=== PATIENT | female | born 1950 | race African-American/Black ===

== ENCOUNTER → 2017-02-03 | Outpatient (CLI) | payer MEDICARE, OTHER ==
[~2017-02-03] MED LIST: ALBU17IN2; BUSP10TA; HYDR25TAB; LATA5OPD; LISI-538; MECL12.575; MELO15TA4; METO50TA7; NAPR500T PO; PROM25TA; TRAM50TA2; VENTAER
[2017-02-03 12:37] LABS: MEAN CORPUSCULAR HEMOGLOBIN 31.1 pg (27.0-33.0); MEAN CORPUSCULAR HGB CONC 34.1 g/dl (32.0-36.5); MEAN CORPUSCULAR VOLUME 91.3 fl (80.0-96.0); PLATELET COUNT, AUTOMATED 164 10^3/uL (150-450); RED CELL DISTRIBUTION WIDTH 13.6 % (11.5-14.5); WHITE BLOOD COUNT 6.4 10^3/uL (4.0-10.0)
--- NOTE | 2017-02-03 12:39 | REP ---
Clinical: Hypertension . Comparison: None . Technique: PA and lateral. Findings: The mediastinum and cardiac silhouette are normal. The lung bajwa are clear and without acute consolidation, effusion, or pneumothorax. The skeletal structures are intact and normal. Impression: 1. No acute cardiopulmonary process. Signed by Elliot Norwood MD 02/03/2017 12:30 P
[2017-02-03 13:15] LABS: ALBUMIN 3.5 GM/DL (3.2-5.2); ALBUMIN/GLOBULIN RATIO 0.83 (1.00-1.93); ALKALINE PHOSPHATASE 58 U/L (45-117); ALT/SGPT 34 U/L (12-78); ANION GAP 7 MEQ/L (8-16); AST/SGOT 32 U/L (7-37); BILIRUBIN,TOTAL 0.7 MG/DL (0.2-1.0); BLOOD UREA NITROGEN 17 MG/DL (7-18); CARBON DIOXIDE LEVEL 31 MEQ/L (21-32); CHLORIDE LEVEL 104 MEQ/L (98-107); CHOLESTEROL LEVEL 224 MG/DL (<200); CREATININE FOR GFR 0.75 MG/DL (0.55-1.02); GLOMERULAR FILTRATION RATE > 60.0 (>45); GLUCOSE, FASTING 87 MG/DL (80-110); POTASSIUM SERUM 4.3 MEQ/L (3.5-5.1); SODIUM LEVEL 142 MEQ/L (136-145); TOTAL PROTEIN 7.7 GM/DL (6.4-8.2); TRIGLYCERIDES LEVEL 93 MG/DL (<150)
--- NOTE | 2017-02-03 13:23 | ECGEPIP ---
Stationary ECG Study [facility] Test Date: 2017-02-03 Pat Name: KARL SPENCE Department: Room: - Gender: F Marketing Research Coordinator: TATYANA : 1950 Requested By: Gabo Rockwell Order Number: [id number] Reading MD: Ronit Hernandez Measurements Intervals [place] Rate: 70 P: 76 MO: 188 QRS: 28 QRSD: 101 T: 67 QT: 399 QTc: 432 Interpretive Statements SINUS RHYTHM WITH OCCASIONAL VENTRICULAR PREMATURE COMPLEXES POSSIBLE LEFT ATRIAL ENLARGEMENT NO PRIOR Electronically Signed On 02-03-2017 13:23:24 EST by Ronit Hernandez
== END ==
LOC: M LAB 11:28
PROVIDERS: ATTEND Family Medicine
DX: I10 Essential (primary) hypertension (principal); Z79.899 Other long term (current) drug therapy; R53.83 Other fatigue

== ENCOUNTER 2017-02-05 18:12 | Emergency (ER) | payer MEDICARE, OTHER ==
[~2017-02-05] VITALS: Ht 175.3 cm; Wt 120.0 kg
[2017-02-05] MEDS ORDERED: METO50TA7 (18:33)
[2017-02-05] MEDS ORDERED: VENTAER (18:33)
[2017-02-05] MEDS ORDERED: BUSP10TA (18:33)
[2017-02-05] MEDS ORDERED: TRAM50TA2 (18:33)
[2017-02-05] MEDS ORDERED: MELO15TA4 (18:33)
[2017-02-05] MEDS ORDERED: HYDR25TAB (18:33)
[2017-02-05] MEDS ORDERED: PROM25TA (18:33)
[2017-02-05] MEDS ORDERED: ALBU17IN2 (18:33)
[2017-02-05] MEDS ORDERED: LATA5OPD (18:33)
[2017-02-05] MEDS ORDERED: MECL12.575 (18:33)
[2017-02-05] MEDS ORDERED: LISI-538 (18:33)
[2017-02-05] MEDS ORDERED: NS 1,000 ML IV SCH (18:55)
[2017-02-05 19:22] LABS: BASO % 0.3 % (0.0-1.0); EOS # 0.3 10^3/uL (0.0-0.50); EOS % 4.2 % (0.0-3.0); IMMATURE GRANULOCYTE % 0.2 % (0-0); LYMPH # 2.1 10^3/uL (1.5-4.5); MEAN CORPUSCULAR HGB CONC 33.4 g/dl (32.0-36.5); MEAN CORPUSCULAR VOLUME 92.8 fl (80.0-96.0); MONO # 0.8 10^3/uL (0.0-0.8); MONO % 11.8 % (0.0-5.0); NEUTROPHILS # 3.3 10^3/uL (1.8-7.7); NEUTROPHILS % 50.5 % (36.0-66.0); PLATELET COUNT, AUTOMATED 169 10^3/uL (150-450); RED CELL DISTRIBUTION WIDTH 13.5 % (11.5-14.5); WHITE BLOOD COUNT 6.4 10^3/uL (4.0-10.0)
--- NOTE | 2017-02-05 19:30 | REPUSA ---
CLINICAL HISTORY: Altered mental status COMPARISON: No study for comparison is available at the time of interpretation. TECHNIQUE: Head CT without contrast. Total DLP 894.8 mGy*cm Brain: Mild generalized parenchymal atrophy. No intracranial hemorrhage, hydrocephalus, acute parench ymal edema or evident mass. Calvarium: Left forehead swelling without fracture. Sinuses (partially visualized): Clear. Intracranial vessels: Atherosclerotic calcification of the anterior and posterior circulation. IMPRESSION: 1. Chronic parenchymal atrophy and atherosclerotic calcification without acute intracranial findings . 2. Mild left forehead swelling without fracture.
[2017-02-05 19:39] LABS: ALBUMIN 3.6 GM/DL (3.2-5.2); ALBUMIN/GLOBULIN RATIO 0.88 (1.00-1.93); ALKALINE PHOSPHATASE 69 U/L (45-117); ALT/SGPT 39 U/L (12-78); ANION GAP 7 MEQ/L (8-16); AST/SGOT 37 U/L (7-37); BILIRUBIN,DIRECT 0.2 MG/DL (0.0-0.2); BILIRUBIN,TOTAL 0.3 MG/DL (0.2-1.0); BLOOD UREA NITROGEN 20 MG/DL (7-18); CALCIUM LEVEL 8.4 MG/DL (8.8-10.2); CARBON DIOXIDE LEVEL 26 MEQ/L (21-32); CHLORIDE LEVEL 110 MEQ/L (98-107); CREATININE FOR GFR 0.79 MG/DL (0.55-1.02); GLOMERULAR FILTRATION RATE > 60.0 (>45); GLUCOSE, FASTING 91 MG/DL (80-110); POTASSIUM SERUM 3.7 MEQ/L (3.5-5.1); SODIUM LEVEL 143 MEQ/L (136-145); TOTAL PROTEIN 7.7 GM/DL (6.4-8.2)
[2017-02-05] MEDS ORDERED: MORPHINE 2 MG/ML 1ML SYRINGE IV ONE (19:45)
--- NOTE | 2017-02-05 20:10 | REPUSA ---
HISTORY: Fall. COMPARISON: No relevant comparison is available at the time of interpretation. CT C-SPINE with reformations. Total DLP 462.4 mGy*cm. C1 through T1: Incomplete posterior ring of C1, which is a developmental variant. No acute fracture. Dens intact. Central canal: Patent without neural encroachment. Alignment (by reformations): Chronic grade 1 anterolisthesis of C3 over C4 due to facet arthrosis. C2-3: Right facet arthrosis produces moderate right neural foraminal stenosis. C3-4: Right facet arthrosis and uncovertebral osteophytes produce severe right neural foraminal steno sis. C4-5: Left facet arthrosis produces mild left neural foraminal stenosis. C5-6: Left facet arthrosis and uncovertebral osteophytes produces moderate left neural foraminal sten osis. IMPRESSION: Degenerative spondylosis produces neural foraminal encroachment from C2-3 through C5-6, w ithout acute fracture.
[2017-02-05] MEDS ORDERED: NAPR500T PO (20:30)
[2017-02-05 21:02] VITALS: BP 142/74
--- NOTE | 2017-02-06 08:40 | REP ---
BILATERAL RIBS, PA CHEST, FIVE VIEWS: HISTORY: Fall. The lungs are clear. The heart is normal in size. The pulmonary vasculature is normal in appearance. The bony structure is intact. IMPRESSION: No acute disease. Signed by Eliseo Graham MD 02/06/2017 09:20 A
--- NOTE | 2017-02-06 17:57 | ECGEPIP ---
Stationary ECG Study [facility] Test Date: 2017-02-05 Pat Name: KARL SPENCE Department: Room: - Gender: F Electrical Inspector: : 1950 Requested By: SEMAJ MENDES Order Number: [id number] Reading MD: Jimbo Castaneda Measurements Intervals [place] Rate: 79 P: 70 NM: 184 QRS: 6 QRSD: 86 T: 65 QT: 390 QTc: 448 Interpretive Statements SINUS RHYTHM SIMILAR TO 02/03/17 Electronically Signed On 02-06-2017 17:56:59 EST by Jimbo Castaneda
== END 2017-02-05 20:57 | disposition home or self-care (01) ==
LOC: M ED 18:12
DX: S00.83XA Contusion of other part of head, initial encounter (principal); S20.219A Contusion of unspecified front wall of thorax, initial encounter; W01.0XXA Fall on same level from slipping, tripping and stumbling without subsequent striking against object, initial encounter; Y92.018 Other place in single-family (private) house as the place of occurrence of the external cause; Y93.89 Activity, other specified; Y99.8 Other external cause status; I10 Essential (primary) hypertension; I25.10 Atherosclerotic heart disease of native coronary artery without angina pectoris; B19.20 Unspecified viral hepatitis C without hepatic coma; Z79.899 Other long term (current) drug therapy; Z88.2 Allergy status to sulfonamides; Z88.8 Allergy status to other drugs, medicaments and biological substances; Z91.040 Latex allergy status; F17.210 Nicotine dependence, cigarettes, uncomplicated
CPT/HCPCS: 70450; 71111; 72125; 80048; 80076; 82140; 82550; 82553; 84443; 84484; 85025; 93005; 93041; 94760; 96374; 99285; G0480

== ENCOUNTER → 2017-03-24 | Outpatient (CLI) | payer MEDICARE, OTHER | LOC: M LRY 10:57 | DX: J18.9 Pneumonia, unspecified organism (principal) | CPT/HCPCS: 71046 ==

== ENCOUNTER → 2017-04-07 | Outpatient (REF) | payer MEDICARE, MEDICAID ==
[2017-04-07 13:38] LABS: INR 1.16
[2017-04-08 14:50] LABS: ALPHA FETOPROTEIN TUMOR QUANT 10.1 NG/ML (<8.1)
[2017-04-08 14:52] LABS: HEPATITIS B SURFACE ANTIBODY NEGATIVE (POSITIVE)
[2017-04-12 00:07] LABS: HEPATITIS C QUANTITATION 2501130 IU/mL (.); HEPATITIS C VIRUS GENOTYPE 1b (.)
[2017-04-18 00:06] LABS: ALPHA 2-MACROGLOBULIN 305 mg/dL (110-276); ALT 22 IU/L (0-40); APOLIPOPROTEIN A-1 193 mg/dL (116-209); GGT 20 IU/L (0-60); HAPTOGLOBIN 98 mg/dL (34-200); HEPATITIS A IgG TOTAL Positive (Negative); NECROINFLAM SCORE 0.09 (0.00-0.17); NECROINFLAMM GRADE A0-No activity (.); TOTAL BILIRUBIN 0.5 mg/dL (0.0-1.2)
== END ==
LOC: M SFHCPLAZ 10:10
DX: B18.2 Chronic viral hepatitis C (principal); I10 Essential (primary) hypertension; M17.0 Bilateral primary osteoarthritis of knee; I85.00 Esophageal varices without bleeding; Z23 Encounter for immunization; K59.01 Slow transit constipation
CPT/HCPCS: 84460

== ENCOUNTER → 2017-04-18 | Outpatient (CLI) | payer MEDICARE, MEDICAID | LOC: M RAD 08:20 | DX: K75.3 Granulomatous hepatitis, not elsewhere classified (principal) | CPT/HCPCS: 76705 ==

== ENCOUNTER → 2017-04-27 | Outpatient (REF) | payer MEDICARE, MEDICAID ==
[2017-04-27 17:26] LABS: APPEARANCE, URINE HAZY (CLEAR); BACTERIA, URINE AUTO 1+ (NEGATIVE); BILIRUBIN, URINE AUTO NEGATIVE (NEGATIVE); BLOOD, URINE BLOOD NEGATIVE (NEGATIVE); COLOR, URINE YELLOW (YELLOW); GLUCOSE, URINE (UA) AUTO NEGATIVE (NEGATIVE); KETONE, URINE AUTO NEGATIVE (NEGATIVE); LEUKOCYTE ESTERASE, URINE AUTO NEGATIVE (NEGATIVE); MUCUS, URINE SMALL (NEGATIVE); NITRITE, URINE AUTO NEGATIVE (NEGATIVE); PROTEIN, URINE AUTO NEGATIVE (NEGATIVE); RBC, URINE AUTO 0 /HPF (0-3); SPECIFIC GRAVITY URINE AUTO 1.013 (1.002-1.035); SQUAMOUS EPITHELIAL CELL UR AU 1 /HPF (0-6); UROBILINOGEN, URINE AUTO 0.2 mg/dL (0.0-2.0); WBC, URINE AUTO 2 /HPF (0-3)
[2017-04-27 17:43] LABS: ALBUMIN 4.1 GM/DL (3.2-5.2); ALBUMIN/GLOBULIN RATIO 0.95 (1.00-1.93); ALKALINE PHOSPHATASE 58 U/L (45-117); ALT/SGPT 28 U/L (12-78); ANION GAP 8 MEQ/L (8-16); AST/SGOT 29 U/L (7-37); BILIRUBIN,TOTAL 0.5 MG/DL (0.2-1.0); BLOOD UREA NITROGEN 18 MG/DL (7-18); C REACTIVE PROTEIN QUANTITATIV 0.52 MG/DL (0.00-0.30); CALCIUM LEVEL 9.4 MG/DL (8.8-10.2); CARBON DIOXIDE LEVEL 27 MEQ/L (21-32); CHLORIDE LEVEL 106 MEQ/L (98-107); FREE T4 1.17 NG/DL (0.76-1.46); GLOMERULAR FILTRATION RATE > 60.0 (>45); GLUCOSE, FASTING 86 MG/DL (70-100); POTASSIUM SERUM 4.1 MEQ/L (3.5-5.1); SODIUM LEVEL 141 MEQ/L (136-145); TOTAL PROTEIN 8.4 GM/DL (6.4-8.2)
[2017-04-27 17:51] LABS: PROLACTIN 4.5 NG/ML
[2017-04-27 18:40] LABS: BASO % 0.4 % (0.0-1.0); EOS # 0.3 10^3/uL (0.0-0.50); EOS % 3.6 % (0.0-3.0); HEMATOCRIT 37.8 % (36.0-47.0); HEMOGLOBIN 12.6 g/dl (12.0-16.0); IMMATURE GRANULOCYTE % 0.4 % (0-3.0); LYMPH # 2.7 10^3/uL (1.5-4.5); MEAN CORPUSCULAR HEMOGLOBIN 29.8 pg (27.0-33.0); MEAN CORPUSCULAR HGB CONC 33.3 g/dl (32.0-36.5); MEAN CORPUSCULAR VOLUME 89.4 fl (80.0-96.0); MONO # 1.2 10^3/uL (0.0-0.8); MONO % 12.2 % (0.0-5.0); NEUTROPHILS # 5.3 10^3/uL (1.8-7.7); NEUTROPHILS % 55.4 % (36.0-66.0); PLATELET COUNT, AUTOMATED 191 10^3/uL (150-450); RED BLOOD COUNT 4.23 10^6/uL (4.00-5.40); RED CELL DISTRIBUTION WIDTH 13.2 % (11.5-14.5); WHITE BLOOD COUNT 9.6 10^3/uL (4.0-10.0)
[2017-04-27 21:34] LABS: ERYTHROCYTE SEDIMENTATION RATE 56 mm/hr (0-30)
== END ==
LOC: M SFHCPLAZ 15:38
DX: B18.2 Chronic viral hepatitis C (principal); I10 Essential (primary) hypertension; R30.0 Dysuria; N64.4 Mastodynia
CPT/HCPCS: 84146

== ENCOUNTER → 2017-05-26 | Outpatient (REF) | payer MEDICARE, MEDICAID ==
[2017-05-26 13:35] LABS: CHOLESTEROL LEVEL 229 MG/DL (<200); CK-MB VALUE MASS < 1.0 NG/ML (<3.6); CPK CREATINE PHOSPHOKINASE 82 U/L (26-192); HDL CHOLESTEROL 54 MG/DL (>40); LDL CHOLESTEROL 148.6 MG/DL (<100); MB/CK RELATIVE INDEX 1.21 (< OR =4); NON-HDL-C 175 MG/DL; TRIGLYCERIDES LEVEL 132 MG/DL (<150); TROPONIN I < 0.02 NG/ML (< 0.10)
== END ==
LOC: M SFHCPLAZ 10:17
DX: R07.89 Other chest pain (principal); Z20.828 Contact with and (suspected) exposure to other viral communicable diseases
CPT/HCPCS: 82550

== ENCOUNTER → 2017-06-21 | Outpatient (REF) | payer MEDICARE ==
[2017-06-21 12:12] LABS: TOTAL 25(OH) VITAMIN D 33.7 NG/ML (30.0-100.0); VITAMIN B12 LEVEL 1405 PG/ML (247-911)
[2017-06-21 12:13] LABS: ALBUMIN 3.6 GM/DL (3.2-5.2); ALKALINE PHOSPHATASE 55 U/L (45-117); ALT/SGPT 14 U/L (12-78); ANION GAP 6 MEQ/L (8-16); AST/SGOT 12 U/L (7-37); BILIRUBIN,TOTAL 0.5 MG/DL (0.2-1.0); BLOOD UREA NITROGEN 23 MG/DL (7-18); CALCIUM LEVEL 9.1 MG/DL (8.8-10.2); CARBON DIOXIDE LEVEL 29 MEQ/L (21-32); CHLORIDE LEVEL 108 MEQ/L (98-107); CHOLESTEROL LEVEL 227 MG/DL (<200); CHOLESTEROL RISK RATIO 3.982 (<5); CREATININE FOR GFR 0.94 MG/DL (0.55-1.30); GLOMERULAR FILTRATION RATE > 60.0 (>45); GLUCOSE, FASTING 99 MG/DL (70-100); HDL CHOLESTEROL 57 MG/DL (>40); LDL CHOLESTEROL 148.6 MG/DL (<100); NON-HDL-C 170 MG/DL; POTASSIUM SERUM 4.2 MEQ/L (3.5-5.1); SODIUM LEVEL 143 MEQ/L (136-145); TOTAL PROTEIN 7.6 GM/DL (6.4-8.2); TRIGLYCERIDES LEVEL 107 MG/DL (<150)
== END ==
LOC: M SFHCPLAZ 09:11
DX: E78.00 Pure hypercholesterolemia, unspecified (principal); R53.83 Other fatigue; Z79.899 Other long term (current) drug therapy
CPT/HCPCS: 82607

== ENCOUNTER 2017-06-29 10:53 | Day surgery (SDC) | payer MEDICARE, MEDICAID ==
[~2017-06-29 10:53] MED LIST changes: -ALBU17IN2; -BUSP10TA; -HYDR25TAB; -LATA5OPD; +LIDOCAINE 2% MDV 20 ML VIAL As Ordered; -LISI-538; -MECL12.575; -MELO15TA4; -METO50TA7; -NAPR500T PO; -PROM25TA; +PROPOFOL 200 MG/20 ML VIAL As Ordered; -TRAM50TA2; -VENTAER
[2017-06-29] MEDS: NS 1,000 ML IV (11:29)
== END 2017-06-29 12:47 | disposition home or self-care (01) ==
LOC: M OPP 10:53
DX: Z12.11 Encounter for screening for malignant neoplasm of colon (principal); K64.0 First degree hemorrhoids; K57.30 Diverticulosis of large intestine without perforation or abscess without bleeding; K74.60 Unspecified cirrhosis of liver; I85.00 Esophageal varices without bleeding; K22.70 Barrett's esophagus without dysplasia; K44.9 Diaphragmatic hernia without obstruction or gangrene; I12.9 Hypertensive chronic kidney disease with stage 1 through stage 4 chronic kidney disease, or unspecified chronic kidney disease; E78.5 Hyperlipidemia, unspecified; R73.03 Prediabetes; F41.9 Anxiety disorder, unspecified; I25.119 Atherosclerotic heart disease of native coronary artery with unspecified angina pectoris; N18.9 Chronic kidney disease, unspecified; K59.00 Constipation, unspecified; K21.9 Gastro-esophageal reflux disease without esophagitis; B18.2 Chronic viral hepatitis C; R06.02 Shortness of breath; M19.90 Unspecified osteoarthritis, unspecified site; F32.9 Major depressive disorder, single episode, unspecified; Z78.0 Asymptomatic menopausal state; J44.9 Chronic obstructive pulmonary disease, unspecified; G47.30 Sleep apnea, unspecified; R06.83 Snoring; Z87.891 Personal history of nicotine dependence; F14.21 Cocaine dependence, in remission; Z88.2 Allergy status to sulfonamides; Z88.5 Allergy status to narcotic agent; Z91.040 Latex allergy status; Z79.82 Long term (current) use of aspirin; Z79.899 Other long term (current) drug therapy; Z80.3 Family history of malignant neoplasm of breast
CPT/HCPCS: G0121

== ENCOUNTER → 2017-07-15 | Outpatient (REF) | payer MEDICARE ==
[2017-07-15 13:51] LABS: ALBUMIN 3.5 GM/DL (3.2-5.2); ALBUMIN/GLOBULIN RATIO 0.92 (1.00-1.93); ALKALINE PHOSPHATASE 52 U/L (45-117); ALT/SGPT 14 U/L (12-78); ANION GAP 6 MEQ/L (8-16); AST/SGOT 13 U/L (7-37); BILIRUBIN,TOTAL 0.5 MG/DL (0.2-1.0); BLOOD UREA NITROGEN 13 MG/DL (7-18); CALCIUM LEVEL 8.8 MG/DL (8.8-10.2); CARBON DIOXIDE LEVEL 28 MEQ/L (21-32); CHLORIDE LEVEL 110 MEQ/L (98-107); CHOLESTEROL LEVEL 192 MG/DL (<200); CREATININE FOR GFR 0.77 MG/DL (0.55-1.30); GLOMERULAR FILTRATION RATE > 60.0 (>45); GLUCOSE, FASTING 89 MG/DL (70-100); HDL CHOLESTEROL 58 MG/DL (>40); NON-HDL-C 134 MG/DL; POTASSIUM SERUM 3.8 MEQ/L (3.5-5.1); SODIUM LEVEL 144 MEQ/L (136-145); TOTAL PROTEIN 7.3 GM/DL (6.4-8.2); TRIGLYCERIDES LEVEL 120 MG/DL (<150); VITAMIN B12 LEVEL 922 PG/ML (247-911)
== END ==
LOC: M SFHCPLAZ 09:50
DX: E78.00 Pure hypercholesterolemia, unspecified (principal); R53.83 Other fatigue
CPT/HCPCS: 82607

== ENCOUNTER → 2017-08-31 | Outpatient (CLI) | payer MEDICARE | LOC: M WHC 11:09 | DX: Z12.31 Encounter for screening mammogram for malignant neoplasm of breast (principal); M89.9 Disorder of bone, unspecified | CPT/HCPCS: 77067 ==

== ENCOUNTER 2017-09-16 20:19 | Emergency (ER) | payer MEDICARE ==
[2017-09-16 20:54] LABS: KETONE, URINE AUTO RFX NEGATIVE (NEGATIVE); LEUKOCYTE ESTERASE UR AUTO RFX NEGATIVE (NEGATIVE); NITRITE, URINE AUTO RFX NEGATIVE (NEGATIVE); RBC, URINE AUTO RFX 0 /HPF (0-3); SPECIFIC GRAVITY UR AUTO RFX 1.002 (1.002-1.035); SQUAM EPITHELIAL CELL UR AURFX 0 /HPF (0-6); WBC, URINE AUTO RFX 0 /HPF (0-3)
[2017-09-16] MEDS: ONDANSETRON 4MG/2ML VIAL (J2405) IV (21:13)
[2017-09-16] MEDS: NS 1,000 ML IV (21:13)
[2017-09-16] MEDS: HYDROMORPHONE HCL 0.5 MG/ 0.5 ML SYRINGE (J1170 PER 1) IV ×2 (21:13→23:06)
[2017-09-16 21:22] LABS: ALBUMIN 3.7 GM/DL (3.2-5.2); ALBUMIN/GLOBULIN RATIO 0.74 (1.00-1.93); ALKALINE PHOSPHATASE 53 U/L (45-117); ALT/SGPT 19 U/L (12-78); ANION GAP 8 MEQ/L (8-16); AST/SGOT 18 U/L (7-37); BILIRUBIN,DIRECT 0.1 MG/DL (0.0-0.2); BILIRUBIN,TOTAL 0.4 MG/DL (0.2-1.0); BLOOD UREA NITROGEN 23 MG/DL (7-18); CARBON DIOXIDE LEVEL 25 MEQ/L (21-32); CHLORIDE LEVEL 105 MEQ/L (98-107); CREATININE FOR GFR 1.03 MG/DL (0.55-1.30); GLOMERULAR FILTRATION RATE > 60.0 (>45); GLUCOSE, FASTING 98 MG/DL (70-100); LIPASE 278 U/L (73-393); POTASSIUM SERUM 4.3 MEQ/L (3.5-5.1); SODIUM LEVEL 138 MEQ/L (136-145); TOTAL PROTEIN 8.7 GM/DL (6.4-8.2)
[2017-09-16 21:24] LABS: BASO % 0.1 % (0.0-1.0); EOS % 0.4 % (0.0-3.0); HEMATOCRIT 34.3 % (36.0-47.0); HEMOGLOBIN 11.5 g/dl (12.0-15.5); IMMATURE GRANULOCYTE % 0.3 % (0-3.0); LYMPH # 2.1 10^3/uL (1.5-4.5); LYMPH % 20.1 % (24.0-44.0); MEAN CORPUSCULAR HEMOGLOBIN 29.5 pg (27.0-33.0); MEAN CORPUSCULAR HGB CONC 33.5 g/dl (32.0-36.5); MEAN CORPUSCULAR VOLUME 87.9 fl (80.0-96.0); MONO # 0.8 10^3/uL (0.0-0.8); MONO % 8.1 % (0.0-5.0); NEUTROPHILS # 7.4 10^3/uL (1.8-7.7); PLATELET COUNT, AUTOMATED 183 10^3/uL (150-450); RED CELL DISTRIBUTION WIDTH 13.3 % (11.5-14.5); WHITE BLOOD COUNT 10.4 10^3/uL (4.0-10.0)
[2017-09-16 21:36] LABS: INR 1.15; PROTHROMBIN TIME 14.9 SECONDS (12.1-14.4)
[2017-09-16] MEDS ORDERED: ISOVUE-370 76% 100ML VIAL (Q9967) As Ordered (21:46)
[2017-09-16 21:57] LABS: LACTIC ACID SEPSIS PROTOCOL 0.6 MMOL/L (0.4-2.0)
[2017-09-16] MEDS: OXYCODONE/APAP 5MG/325MG(BULK FOR ED) 1 TABLET PO (23:15)
== END 2017-09-16 23:46 | disposition home or self-care (01) ==
LOC: M ED 20:19
DX: R10.9 Unspecified abdominal pain (principal); Z87.440 Personal history of urinary (tract) infections; I10 Essential (primary) hypertension; B19.20 Unspecified viral hepatitis C without hepatic coma; I85.00 Esophageal varices without bleeding; Z87.891 Personal history of nicotine dependence; Z88.5 Allergy status to narcotic agent; Z88.2 Allergy status to sulfonamides; Z91.040 Latex allergy status; Z79.899 Other long term (current) drug therapy; Z79.82 Long term (current) use of aspirin
CPT/HCPCS: J2405

== ENCOUNTER → 2017-12-05 | Outpatient (REF) | payer MEDICARE ==
[2017-12-05 12:37] LABS: BASO % 0.3 % (0.0-1.0); EOS # 0.2 10^3/uL (0.0-0.50); EOS % 3.3 % (0.0-3.0); HEMATOCRIT 38.2 % (36.0-47.0); HEMOGLOBIN 12.7 g/dl (12.0-15.5); IMMATURE GRANULOCYTE % 0.3 % (0-3.0); LYMPH # 2.9 10^3/uL (1.5-4.5); LYMPH % 48.2 % (24.0-44.0); MEAN CORPUSCULAR HGB CONC 33.2 g/dl (32.0-36.5); MEAN CORPUSCULAR VOLUME 90.1 fl (80.0-96.0); MONO # 0.5 10^3/uL (0.0-0.8); NEUTROPHILS # 2.4 10^3/uL (1.8-7.7); NEUTROPHILS % 39.9 % (36.0-66.0); PLATELET COUNT, AUTOMATED 162 10^3/uL (150-450); RED BLOOD COUNT 4.24 10^6/uL (4.00-5.40); RED CELL DISTRIBUTION WIDTH 14.2 % (11.5-14.5)
[2017-12-05 12:49] LABS: ALBUMIN 3.9 GM/DL (3.2-5.2); ALBUMIN/GLOBULIN RATIO 0.95 (1.00-1.93); ALKALINE PHOSPHATASE 51 U/L (45-117); ALT/SGPT 14 U/L (12-78); ANION GAP 7 MEQ/L (8-16); AST/SGOT 14 U/L (7-37); BILIRUBIN,TOTAL 0.3 MG/DL (0.2-1.0); BLOOD UREA NITROGEN 13 MG/DL (7-18); CALCIUM LEVEL 9.5 MG/DL (8.8-10.2); CARBON DIOXIDE LEVEL 31 MEQ/L (21-32); CHLORIDE LEVEL 108 MEQ/L (98-107); GLOMERULAR FILTRATION RATE > 60.0 (>45); GLUCOSE, FASTING 104 MG/DL (70-100); POTASSIUM SERUM 4.1 MEQ/L (3.5-5.1); SODIUM LEVEL 146 MEQ/L (136-145)
[2017-12-05 12:56] LABS: INR 1.15; PROTHROMBIN TIME 14.9 SECONDS (12.1-14.4)
[2017-12-06 09:55] LABS: ALPHA FETOPROTEIN TUMOR QUANT 7.6 NG/ML (<8.1)
[2017-12-08 14:39] LABS: HEPATITIS C QUANTITATION HCV Not Detected IU/mL (.)
== END ==
LOC: M SFHCPLAZ 09:40
DX: B18.2 Chronic viral hepatitis C (principal)
CPT/HCPCS: 80053

== ENCOUNTER → 2017-12-16 | Outpatient (CLI) | payer MEDICARE | LOC: M RAD 09:08 | DX: B18.2 Chronic viral hepatitis C (principal); N28.1 Cyst of kidney, acquired | CPT/HCPCS: 76705 ==

== ENCOUNTER → 2018-02-09 | Outpatient (CLI) | payer MEDICARE, MEDICAID ==
[~2018-02-09] MED LIST changes: +ISOVUE-370 76% 100ML VIAL (Q9967) As Ordered; -LIDOCAINE 2% MDV 20 ML VIAL As Ordered; -PROPOFOL 200 MG/20 ML VIAL As Ordered
== END ==
LOC: M RAD 10:51
DX: I65.23 Occlusion and stenosis of bilateral carotid arteries (principal)
CPT/HCPCS: Q9967

== ENCOUNTER 2018-03-21 09:37 | Inpatient (IN) | payer MEDICARE, MEDICAID ==
[~2018-03-21] VITALS: Ht 175.3 cm; Wt 122.7 kg
[~2018-03-21 09:37] MED LIST changes: +ALBU17IN2; +ASPI1TAB PO; +BREO1INH3 INH; +BUSP10TA PO; +CALC600T7 PO; +CARV3.12 PO; +CENTTAB PO; +CLOB-25 EX; +CRES5TAB PO; +FISH100049 PO; +FLAX100012 PO; +FLAX10002 PO; +FLUO5OI EXT; +HYDR25TAB PO; -ISOVUE-370 76% 100ML VIAL (Q9967) As Ordered; +LATA5OPD OU; +LIDOCAINE 1% MDV 20ML VIAL SQ PRN; +LISI-538 PO; +LOSA25TA14 PO; +MAVY1TAB PO; +MECL12.575; +MELO15TA28 PO; +METO50TA7 PO; +MILK175C2 PO; +NAPR-50 PO; +OMEP40CA2 PO; +PROM25TA12; +TRAM50TA2 PO; +VENTAER; +VITA100067 PO; +VITA500T53 PO; +VITATAB11 PO; +XALA0.007 OU
[2018-03-21] MEDS ORDERED: LR 1,000 ML IV ONE (10:00)
--- NOTE | 2018-03-21 10:01 | HPEPDOC ---
General Date of Admission Mar 21, 2018 at 09:37 Chief Complaint The patient is a 67-year-old female admitted with a reason for visit of Carotid Stenosis. History of Present Illness Patient is a 67-year-old female chronic smoker who underwent a carotid artery duplex which showed greater than 70% stenosis in the right internal carotid artery. Patient is asymptomatic. Patient denies any visual changes. Patient denies any headaches. The carotid artery duplex shows less than 70% stenosis in the left internal carotid artery. Subsequent CTA neck demonstrates significant stenoses in the proximal ICA due to calcific plaquing bilaterally. High grade, 90% range stenosis suspected on the right and 70% stenosis on the left proximal ICA. Patient denies rest pain, TIAs, amaurosis fugax, paralysis or paresis of the extremity, nausea, fevers, chills, vomiting, chest pain, or shortness of breath. Patient had quit smoking but restarted smoking again recently. Patient states that she is under a lot of stress and this is why she has recently begun smoking again. Pt was admitted for Rt CEA today. Home Medications Scheduled (Flax Seed Oil 1000 mg) 1 Cap Cap, 1 CAP PO DAILY, (Reported) Aspirin (Aspirin 81) 81 Mg Tab, 81 MG PO DAILY, (Reported) B1/B2/B3/B5/B6 (Vitamin B Complex) 1 Tab Tab, 1 TAB PO DAILY, (Reported) Calcium/Vitamin D (Calcium + D3 600-200 mg-Unit) 1 Tab Tab, 1 TAB PO DAILY, (Reported) Carvedilol (Carvedilol) 3.125 Mg Tab, 3.125 MG PO BID, (Reported) Clopidogrel Bisulfate (Plavix) 75 Mg Tab, 1 TAB PO DAILY Cyanocobalamin (Vitamin B12) 500 Mcg Tab, 500 MCG PO DAILY, (Reported) Famotidine (Pepcid) 20 Mg Tab, 1 TAB PO BID Fluocinonide (Fluocinonide) 0.05 % Oin, 1 % EXT BID, (Reported) Latanoprost (Xalatan) 0.005 % Misty, 1 DROP OU QPM, (Reported) Losartan Potassium (Losartan Potassium) 25 Mg Tab, 25 MG PO DAILY, (Reported) Multivitamins (Centrum Silver) 1 Tab Tab, 1 TAB PO DAILY, (Reported) Rosuvastatin Calcium (Crestor) 5 Mg Tab, 5 MG PO QHS, (Reported) Silybum Marianum (Milk Thistle) 175 Mg Cap, 175 MG PO DAILY, (Reported) Vitamin D (Vitamin D) 1,000 Unit Cap, 1,000 UNIT PO DAILY, (Reported) Scheduled PRN Albuterol Sulfate (Ventolin Hfa) 108 Mcg/Act Aer, PRN PRN for WHEEZING, (Reported) Tramadol HCl (Tramadol HCl) 50 Mg Tab, PO TIDP PRN for PAIN, (Reported) Allergies Coded Allergies: Latex (Verified Allergy, Intermediate, hives, 03/21/18) Sulfamethoxazole w/Trimethoprim (Verified Allergy, Intermediate, hives, 03/21/18) Morphine (Verified Adverse Reaction, Intermediate, prolonged sedation, 03/21/18) Past Medical History Medical History 1. Hypertension 2. Hypercholesterolemia 3. Pulmonary Emphysema 4. Arthritis 5. Cirrhosis Surgical History 1. Removal of Gallbladder, 2. Section, 3. Ankle Surgery, 4. Shoulder Surgery Social History * Smoker: current smoker (19 PKY, 3 cig per day now) Alcohol: occationally Drugs: cocaine (Hx of cocaine abuse) Review of Systems Other systems 14 systems reviewed and were negative except those listed in HPI. Physical Examination General Exam: Positive: Alert, No Acute Distress Eye Exam: Positive: PERRLA, Conjunctiva & lids normal, EOMI ENT Exam: Positive: Atraumatic Neck Exam: Positive: Supple, +2 carotid pulse wo bruit Chest Exam: Positive: Clear to auscultation (decreased BS b/l), Diminished; Negative: Rales, Rhonchi, Wheezing, Other Heart Exam: Positive: Rate Normal, Regular Rhythm, Normal S1, Normal S2, Murmurs (3/6 systolic murmur loudest in aortic area.); Negative: Gallops, Rubs, Other Abdomen Exam: Positive: Normal bowel sounds, Soft; Negative: Tenderness, Hepatospenomegaly, Mass, Hernia, Other Extremity Exam: Positive: Normal pulses (2+ b/l); Negative: Clubbing, Cyanosis, Edema, Tenderness, Swelling, Other Skin Exam: Positive: Nl turgor and temperature Neuro Exam: Positive: Strength at 5/5 X4 ext, Cranial Nerves 3-12 NL Psych Exam: Positive: Mental status NL, Mood NL Vital Signs Temp: 97.8, WV 85, RR 18, BP 137/86, PSO2 95% on RA Assessment/Plan 1. B/l Carotid stenosis, R>L Patient is a 67 year old female with asymptomatic carotid artery stenosis by ult rasound which is greater than 70% in the right internal carotid artery. Subsequent CTA neck demonstrates significant stenoses in the proximal ICA due to calcific plaquing bilaterally. High grade, 90% range stenosis suspected on the right and 70% stenosis on the left proximal ICA. Rt CEA is warranted. The procedure, the risks and benefits of the procedure were thoroughly explained to pt by Dr Cha. Pt verbally understood it. Consent form was signed. 2. Hypercholesterolemia 3. Hypertension 4. COPD emphysema 5. Heart murmur in aortic area 6. Arthritis Plan / VTE VTE Prophylaxis Ordered?: Yes Plan Plan Preop lab ordered and reviewed NPO since midnight prior to the day of the surgery Proceed with Rt CEA today at 11:00am RAUL CHAUDHARY PA-C Mar 21, 2018 10:01
[2018-03-21 10:26] LABS: HEMATOCRIT 38.2 % (36.0-47.0); HEMOGLOBIN 12.6 g/dl (12.0-15.5); MEAN CORPUSCULAR HEMOGLOBIN 29.6 pg (27.0-33.0); MEAN CORPUSCULAR VOLUME 89.9 fl (80.0-96.0); PLATELET COUNT, AUTOMATED 166 10^3/uL (150-450); RED BLOOD COUNT 4.25 10^6/uL (4.00-5.40); WHITE BLOOD COUNT 5.4 10^3/uL (4.0-10.0)
[2018-03-21] MEDS ORDERED: BUPIVACAINE HCL 0.5% 30 ML VIAL As Ordered ONE (16:21)
[2018-03-21] MEDS ORDERED: HEPARIN SOD (PORCINE) 5000 UNITS/ML VIAL As Ordered ONE ×2 (16:21→17:26)
[2018-03-21] MEDS ORDERED: LIDOCAINE 1% SDV INJ 30 ML VIAL As Ordered ONE (16:21)
[2018-03-21] MEDS ORDERED: THROMBIN SOLN 20,000 UNITS KIT As Ordered ONE (16:21)
[2018-03-21] MEDS ORDERED: GLYCOPYRROLATE INJ 0.2 MG/ML 2 ML VIAL As Ordered ONE ×2 (17:08→18:02)
[2018-03-21] MEDS ORDERED: PHENYLephrine HCL 500 MCG/5 ML (100MCG/ML) SYRINGE (J2370) As Ordered ONE (17:25)
[2018-03-21] MEDS ORDERED: LIDOCAINE 2% INJ 100 MG/5 ML SDV (FOR ANES.) As Ordered ONE (17:26)
[2018-03-21] MEDS ORDERED: ONDANSETRON 4MG/2ML VIAL (J2405) As Ordered ONE (17:26)
[2018-03-21] MEDS ORDERED: fentaNYL 250 MCG/5 ML INJECTION (J3010) As Ordered ONE (17:26)
[2018-03-21] MEDS ORDERED: MIDAZOLAM INJ 2 MG/2 ML VIAL (J2250) As Ordered ONE (17:26)
[2018-03-21] MEDS ORDERED: PROPOFOL 200 MG/20 ML VIAL As Ordered ONE (17:26)
[2018-03-21] MEDS ORDERED: dexameTHASONE 4 MG/ML 1ML VIAL (J1100) As Ordered ONE (17:26)
[2018-03-21] MEDS ORDERED: ROCURONIUM BROMIDE 50 MG/5 ML VIAL As Ordered ONE (17:26)
[2018-03-21] MEDS ORDERED: NEOSTIGMINE 10 MG/10 ML VIAL (J2710) As Ordered ONE (18:02)
[2018-03-21] MEDS ORDERED: ONDANSETRON 4MG/2ML VIAL (J2405) IV PRN ×2 (18:45→20:00)
[2018-03-21] MEDS ORDERED: BISACODYL 10 MG SUPP PR PRN (18:45)
[2018-03-21] MEDS ORDERED: ALBUTEROL 90 MCG/ACT 8GM HFA INHALER INH PRN (18:45)
[2018-03-21] MEDS ORDERED: MOM 30ML SUSPENSION UDC PO PRN (18:45)
[2018-03-21] MEDS ORDERED: ACETAMINOPHEN TAB 650MG DOSE (2X325MG) PO PRN (18:45)
[2018-03-21] MEDS ORDERED: PILL CRUSHER/CUTTER 1 EACH XX PRN (19:00)
[2018-03-21] MEDS ORDERED: fentaNYL 100 MCG/2 ML INJECTION (J3010) As Ordered ONE (19:47)
[2018-03-21] MEDS: fentaNYL 100 MCG/2 ML INJECTION (J3010) IV PRN ×4 (19:48→20:57)
[2018-03-21] MEDS ORDERED: LR 1,000 ML IV SCH (20:00)
[2018-03-21] MEDS ORDERED: PERCOCET 5MG/325MG TAB PO PRN (20:00)
[2018-03-21 21:15] VITALS: BP 154/88
[2018-03-21 21:30] VITALS: BP 152/84
[2018-03-21 21:45] VITALS: BP 134/82
[2018-03-21 22:00] VITALS: BP 140/84
[2018-03-21 22:30] VITALS: BP 138/64
[2018-03-21 23:00] VITALS: BP 136/74
[2018-03-21] MEDS: LATANOPROST 0.005% OPHTH SOLN 2.5 ML OU SCH (23:10)
[2018-03-21] MEDS: ROSUVASTATIN 10 MG TAB (CRESTOR) PO SCH (23:10)
[2018-03-21] MEDS: DOCUSATE SODIUM 100 MG CAP PO SCH (23:11)
[2018-03-21] MEDS: SENOKOT S TAB PO SCH (23:11)
[2018-03-21] MEDS: CARVedilol 3.125 MG TAB PO SCH (23:12)
[2018-03-22] VITALS (7 sets, daily range): BP systolic 116–156; BP diastolic 59–83
[2018-03-22] MEDS: traMADol 50 MG TAB PO PRN ×4 (01:28→22:09)
[2018-03-22] MEDS: OMEPRAZOLE 20 MG CAP PO SCH (08:41)
[2018-03-22] MEDS: CYANOCOBALAMIN 500 MCG TAB PO SCH (08:41)
[2018-03-22] MEDS: VITAMIN B COMPLEX/VIT C CAP PO SCH (08:41)
[2018-03-22] MEDS: MULTIVITAMINS/MINERALS THERAP 1 TAB PO SCH (08:41)
[2018-03-22] MEDS: ASPIRIN 81 MG ENTERIC TAB PO SCH (08:41)
[2018-03-22] MEDS: VITAMIN D 1,000 INTERNATIONAL UNITS TABLET PO SCH (08:41)
[2018-03-22] MEDS: DOCUSATE SODIUM 100 MG CAP PO SCH ×2 (08:41→21:02)
[2018-03-22] MEDS: LOSARTAN 25 MG TAB PO SCH (08:42)
[2018-03-22] MEDS: CARVedilol 3.125 MG TAB PO SCH ×2 (08:42→21:02)
[2018-03-22] MEDS: SENOKOT S TAB PO SCH ×2 (08:42→21:01)
[2018-03-22 10:24] LABS: HEMATOCRIT 33.4 % (36.0-47.0); HEMOGLOBIN 10.9 g/dl (12.0-15.5); MEAN CORPUSCULAR HEMOGLOBIN 29.6 pg (27.0-33.0); MEAN CORPUSCULAR HGB CONC 32.6 g/dl (32.0-36.5); MEAN CORPUSCULAR VOLUME 90.8 fl (80.0-96.0); PLATELET COUNT, AUTOMATED 148 10^3/uL (150-450); RED BLOOD COUNT 3.68 10^6/uL (4.00-5.40); WHITE BLOOD COUNT 8.1 10^3/uL (4.0-10.0)
--- NOTE | 2018-03-22 10:56 | IPNPDOC ---
Subjective Date Seen The patient was seen on 03/22/18. Subjective Chief Complaint/HPI C/o soreness in Rt neck, feeling tired. +N/-V last night and resolved now. +breakfast. Want to go home tomorrow. Objective Physical Examination General Exam: Positive: Alert, No Acute Distress Eye Exam: Positive: PERRLA, Conjunctiva & lids normal, EOMI ENT Exam: Positive: Atraumatic, Tympanic Membranes Normal Neck Exam: Positive: Supple (no hematoma, CHUN drain 80 cc sanguinous sinec the surgery), +2 carotid pulse wo bruit Chest Exam: Positive: Clear to auscultation (decreased BS b/l), Diminished; Negative: Rales, Rhonchi, Wheezing, Other Heart Exam: Positive: Rate Normal, Regular Rhythm, Normal S1, Normal S2, Murmurs (3/6 systolic murmur loudest in aortic area.); Negative: Gallops, Rubs, Other Abdomen Exam: Positive: Normal bowel sounds, Soft; Negative: Tenderness, Hepatospenomegaly, Mass, Hernia, Other Extremity Exam: Positive: Normal pulses (2+ b/l); Negative: Clubbing, Cyanosis, Edema, Tenderness, Swelling, Other Skin Exam: Positive: Nl turgor and temperature Neuro Exam: Positive: Strength at 5/5 X4 ext, Cranial Nerves 3-12 NL Psych Exam: Positive: Mental status NL, Mood NL Assessment /Plan Assessment 1. POD #1, S/p RCEA and hematoma evacuation Pt doing well, no S/Sx TIA/stroke, no hematoma, CHUN drain w/ 80 cc since the surgery. 2. HTN, BP 137/86 this am 3. HLD 4. COPD emphysema 5. Hear murmur in aortic area 6. Acute blood loss anemia H&H 10.9/33.4 7. Arthritis Plan/VTE VTE Prophylaxis Ordered?: Yes Plan Continue current management Keep SBP <140 Will DC CHUN drain this afternoon. Plan to DC home tomorrow. VS, I&O, 24H, Fishbone Vital Signs/I&O Vital Signs Date Time Temp Pulse Resp B/P (MAP) Pulse Ox O2 Delivery O2 Flow Rate FiO2 03/22/18 09:11 18 03/22/18 08:42 156/74 03/22/18 08:42 77 03/22/18 08:29 97.0 97 Nasal Cannula 2.0 I&O- Last 24 Hours up to 6 AM 03/22/18 05:59 Intake Total 2760 ml Output Total 1780 ml Balance 980 ml Laboratory Data 24H LABS Laboratory Tests 2 03/22/18 10:03: Nucleated Red Blood Cells % (auto) 0.0 CBC/BMP Laboratory Tests 03/22/18 10:03 Red Blood Count 3.68 L, Mean Corpuscular Volume 90.8, Mean Corpuscular Hem oglobin 29.6, Mean Corpuscular Hemoglobin Concent 32.6, Red Cell Distribution Width 13.9 RAUL CHAUDHARY PA-C Mar 22, 2018 10:56
[2018-03-22] MEDS ORDERED: SLF 3 ML SYR IV PRN (12:30)
[2018-03-22] MEDS: SLF 3 ML SYR IV SCH ×2 (14:19→21:03)
[2018-03-22] MEDS ORDERED: traMADol 50 MG TAB PO PRN (16:45)
[2018-03-22] MEDS: ROSUVASTATIN 10 MG TAB (CRESTOR) PO SCH (21:01)
[2018-03-22] MEDS: LATANOPROST 0.005% OPHTH SOLN 2.5 ML OU SCH (21:02)
[2018-03-22] MEDS ORDERED: MECLIZINE 25 MG TABLET PO ONE (22:00)
[2018-03-23 04:00] VITALS: BP 117/68
[2018-03-23] MEDS: SLF 3 ML SYR IV SCH (05:32)
[2018-03-23 08:00] VITALS: BP 141/73
[2018-03-23] MEDS ORDERED: PLAV1TAB2 PO (09:28)
[2018-03-23] MEDS ORDERED: FAMO20TA PO (09:28)
[2018-03-23] MEDS: DOCUSATE SODIUM 100 MG CAP PO SCH (09:42)
[2018-03-23] MEDS: CARVedilol 3.125 MG TAB PO SCH (09:43)
[2018-03-23] MEDS: traMADol 50 MG TAB PO PRN (09:43)
--- NOTE | 2018-03-23 09:43 | IPNPDOC ---
Subjective Date Seen The patient was seen on 03/23/18. Subjective Chief Complaint/HPI C/o sore throat and itchiness in genitalia. CHUN removed last pm. Objective Physical Examination General Exam: Positive: Alert, No Acute Distress Eye Exam: Positive: PERRLA, Conjunctiva & lids normal, EOMI ENT Exam: Positive: Atraumatic, Tympanic Membranes Normal Neck Exam: Positive: Supple (no hematoma, CHUN drain 80 cc sanguinous sinec the surgery), +2 carotid pulse wo bruit, Other (Rt neck incision c/d/i, CHUN removed, no hematoma.) Chest Exam: Positive: Clear to auscultation (decreased BS b/l, coarse BS close to main bronchus), Diminished; Negative: Rales, Rhonchi, Wheezing, Other Heart Exam: Positive: Rate Normal, Regular Rhythm, Normal S1, Normal S2, Murmurs (3/6 systolic murmur loudest in aortic area.); Negative: Gallops, Rubs, Other Abdomen Exam: Positive: Normal bowel sounds, Soft; Negative: Tenderness, Hepatospenomegaly, Mass, Hernia, Other Extremity Exam: Positive: Normal pulses (2+ b/l); Negative: Clubbing, Cyanosis, Edema, Tenderness, Swelling, Other Skin Exam: Positive: Nl turgor and temperature Neuro Exam: Positive: Strength at 5/5 X4 ext, Cranial Nerves 3-12 NL Psych Exam: Positive: Mental status NL, Mood NL Assessment /Plan Assessment 1. POD #2, S/p RCEA and hematoma evacuation Pt doing well, no S/Sx TIA/stroke, no hematoma, CHUN removed last evening 2. HTN, SBP 117-141 3. HLD 4. COPD emphysema 5. Hear murmur in aortic area 6. Acute blood loss anemia 7. Arthritis 8. Yeast infection genitalia Plan/VTE VTE Prophylaxis Ordered?: Yes Plan 1. DC home today 2. Plavix 75 mg daily x 30 days, refills x 5 3. DC Omeprazole 40 mg daily d/t severe drug interaction with Plavix 4. Start Pepcid 20 mg bid x 60 days, refills x6 5. OTC antifungal cream from local pharmacy 6. F/u with Dr Cha in 1 week VS, I&O, 24H, Fishbone Vital Signs/I&O Vital Signs Date Time Temp Pulse Resp B/P (MAP) Pulse Ox O2 Delivery O2 Flow Rate FiO2 03/23/18 08:12 93 Room Air 03/23/18 08:00 97.1 91 20 141/73 (95) 03/23/18 04:13 2.0 I&O- Last 24 Hours up to 6 AM 03/23/18 06:00 Intake Total 2160 ml Output Total 2120 ml Balance 40 ml Laboratory Data 24H LABS Laboratory Tests 2 03/22/18 10:03: Nucleated Red Blood Cells % (auto) 0.0 CBC/BMP Laboratory Tests 03/22/18 10:03 Red Blood Count 3.68 L, Mean Corpuscular Volume 90.8, Mean Corpuscular Hemoglobin 29.6, Mean Corpuscular Hemoglobin Concent 32.6, Red Cell Distribution Width 13.9 RAUL CHAUDHARY PA-C Mar 23, 2018 09:43
[2018-03-23] MEDS: VITAMIN D 1,000 INTERNATIONAL UNITS TABLET PO SCH (09:44)
[2018-03-23] MEDS: VITAMIN B COMPLEX/VIT C CAP PO SCH (09:44)
[2018-03-23] MEDS: MULTIVITAMINS/MINERALS THERAP 1 TAB PO SCH (09:44)
[2018-03-23] MEDS: OMEPRAZOLE 20 MG CAP PO SCH (09:44)
[2018-03-23] MEDS: ASPIRIN 81 MG ENTERIC TAB PO SCH (09:44)
[2018-03-23] MEDS: SENOKOT S TAB PO SCH (09:44)
[2018-03-23] MEDS: LOSARTAN 25 MG TAB PO SCH (09:44)
[2018-03-23] MEDS: CYANOCOBALAMIN 500 MCG TAB PO SCH (09:44)
--- NOTE | 2018-03-23 10:04 | DS.PDOC ---
Discharge Summary General Date of Admission Mar 21, 2018 at 09:37 Date of Discharge 03/23/18 Attending Physician: Alon Cha MD Discharge Summary PROCEDURES PERFORMED DURING STAY: Rt CEA and hematoma evacuation ADMITTING DIAGNOSES: 1. Carotid stenosis b/l, R>90%, Lt 70% 2. HTN 3. HLD 4. COPD emphysema 5. Hear murmur in aortic area 6. Arthritis DISCHARGE DIAGNOSES: 1-6 same above 7. Acute blood loss anemia 8. Yeast infection genitalia COMPLICATIONS/CHIEF COMPLAINT: Carotid Stenosis. HISTORY OF PRESENT ILLNESS: Patient is a 67-year-old female chronic smoker who underwent a carotid artery duplex which showed greater than 70% stenosis in the right internal carotid artery. Patient is asymptomatic. Patient denies any visual changes. Patient denies any headaches. The carotid artery duplex shows less than 70% stenosis in the left internal carotid artery. Subsequent CTA neck demonstrates significant stenoses in the proximal ICA due to calcific plaquing bilaterally. High grade, 90% range stenosis suspected on the right and 70% stenosis on the left proximal ICA. Patient denies rest pain, TIAs, amaurosis fugax, paralysis or paresis of the extremity, nausea, fevers, chills, vomiting, chest pain, or shortness of breath. Patient had quit smoking but restarted smoking again recently. Patient states that she is under a lot of stress and this is why she has recently begun smoking again. Pt was admitted for Rt CEA today. HOSPITAL COURSE: Patient underwent Rt CEA on 03/21/18 with complication of bleed/hematoma secondary to severe regurgitation in OR. The incision was reopened immediately for hemostasis and hematoma evacuation. The EBL was 450 cc. Postoperatively, patient recuperated well, CHUN drain was removed 24 hours after the surgery w/o concern. Her hemoglobin level was 10.9/33.4. Patient was ready to go home today on baby aspirin, Plavix and statin. Since the severe drug interaction between Plavix and her home med Omeprazole, the PPI was replaced with Pepcid. Patient has recurrent yeast infection of genitalia. Recommend OTC antifungal cream from local pharmacy. DISCHARGE MEDICATIONS: Please see below. ALLERGIES: Please see below. PHYSICAL EXAMINATION ON DISCHARGE: VITAL SIGNS: Please see below. GENERAL: AAO x3 HEENT: NCAD, NICHOLE, EOMI NECK: Supple, Incision C/D/I no hematoma CARDIOVASCULAR EXAMINATION: RRR, 3/6 systolic murmur in aortic area, No G/R, PP: 2+ b/l RESPIRATORY EXAMINATION: CTAB, decreased BS b/l, no R/R/W ABDOMINAL EXAMINATION: BS nl, soft NT/ND, no palpable mass EXTREMITIES: no C/C/E SKIN: Warm and moist NEUROLOGICAL EXAMINATION: CN 2-12, motor and sensation intact, no focal deficits PSYCHIATRIC EXAMINATION: Appropriate mood and affect LABORATORY DATA: Please see below. IMAGING: None PROGNOSIS: Good ACTIVITY: As tolerated. DIET: DASH diet DISCHARGE PLAN: discharge today DISPOSITION: home . DISCHARGE INSTRUCTIONS: Keep dressing clean dry, change it as needed NO pulling, heavy lifting >10 lb or any type strenuous activities for 4 weeks [address] prior to office visit Can have shower tonight ITEMS TO FOLLOWUP ON ON OUTPATIENT: F/u with Dr Cha in 1 week DISCHARGE CONDITION: good TIME SPENT ON DISCHARGE: Greater than 60 minutes. Vital Signs/I&Os Vital Signs Date Time Temp Pulse Resp B/P (MAP) Pulse Ox O2 Delivery O2 Flow Rate FiO2 03/23/18 08:12 93 Room Air 03/23/18 08:00 97.1 91 20 141/73 (95) 03/23/18 04:13 2.0 I&O- Last 24 Hours up to 6 AM 03/23/18 06:00 Intake Total 2160 ml Output Total 2120 ml Balance 40 ml Laboratory Data Labs 24H Laboratory Tests 2 03/22/18 10:03: Nucleated Red Blood Cells % (auto) 0.0 CBC/BMP Laboratory Tests 03/22/18 10:03 Red Blood Count 3.68 L, Mean Corpuscular Volume 90.8, Mean Corpuscular Hemoglobin 29.6, Mean Corpuscular Hemoglobin Concent 32.6, Red Cell Distribution Width 13.9 Discharge Medications Scheduled (Flax Seed Oil 1000 mg) 1 Cap Cap, 1 CAP PO DAILY, (Reported) Aspirin (Aspirin 81) 81 Mg Tab, 81 MG PO DAILY, (Reported) B1/B2/B3/B5/B6 (Vitamin B Complex) 1 Tab Tab, 1 TAB PO DAILY, (Reported) Calcium/Vitamin D (Calcium + D3 600-200 mg-Unit) 1 Tab Tab, 1 TAB PO DAILY, (Reported) Carvedilol (Carvedilol) 3.125 Mg Tab, 3.125 MG PO BID, (Reported) Clopidogrel Bisulfate (Plavix) 75 Mg Tab, 1 TAB PO DAILY Cyanocobalamin (Vitamin B12) 500 Mcg Tab, 500 MCG PO DAILY, (Reported) Famotidine (Pepcid) 20 Mg Tab, 1 TAB PO BID Fluocinonide (Fluocinonide) 0.05 % Oin, 1 % EXT BID, (Reported) Latanoprost (Xalatan) 0.005 % Misty, 1 DROP OU QPM, (Reported) Losartan Potassium (Losartan Potassium) 25 Mg Tab, 25 MG PO DAILY, (Reported) Multivitamins (Centrum Silver) 1 Tab Tab, 1 TAB PO DAILY, (Reported) Rosuvastatin Calcium (Crestor) 5 Mg Tab, 5 MG PO QHS, (Reported) Silybum Marianum (Milk Thistle) 175 Mg Cap, 175 MG PO DAILY, (Reported) Vitamin D (Vitamin D) 1,000 Unit Cap, 1,000 UNIT PO DAILY, (Reported) Scheduled PRN Albuterol Sulfate (Ventolin Hfa) 108 Mcg/Act Aer, PRN PRN for WHEEZING, (Reported) Tramadol HCl (Tramadol HCl) 50 Mg Tab, PO TIDP PRN for PAIN, (Reported) Allergies Coded Allergies: Latex (Verified Allergy, Intermediate, hives, 03/21/18) Sulfamethoxazole w/Trimethoprim (Verified Allergy, Intermediate, hives, 03/21/18) Morphine (Verified Adverse Reaction, Intermediate, prolonged sedation, 03/21/18) RAUL CHAUDHARY PA-C Mar 23, 2018 10:04
--- NOTE | 2018-04-03 12:40 | RO ---
DATE OF PROCEDURE: 03/21/2018 ATTENDING SURGEON: Mak Cha MD GIS ANALYST DEVELOPER: Chapito Grimm PA-C PREOPERATIVE DIAGNOSIS: Right carotid artery stenosis. POSTOPERATIVE DIAGNOSIS: Right carotid artery stenosis. PROCEDURE: Right radial artery line placement, right carotid endarterectomy with patch angioplasty with XenoSure biologic patch, and usage of a shunt. INDICATION: The patient is a 67-year-old female with high-grade right internal carotid artery stenosis greater than 80% who will undergo a right carotid endarterectomy. Risks, benefits, and alternative options were discussed with the patient. ANESTHESIA: General endotracheal. ESTIMATED BLOOD LOSS: 150 mL. INTRAVENOUS (IV) FLUID: 1400 mL. HEPARIN: 7000 units. SPECIMEN: Right carotid artery plaque. DRAINS: #10 Leodan-Mcdaniels (CHUN). PREOPERATIVE ANTIBIOTICS: Ancef 2 grams. COMPLICATION: None. IMPLANT: XenoSure biologic patch used to perform patch angioplasty of the carotid endarterectomy site. DATE OF PROCEDURE: The patient was taken to the operating room, placed supine on the operating table, and then prepped and draped in a standard surgical fashion. An incision was made along the anterior border of the sternocleidomastoid muscle in the right. The carotid sheath was identified, and the right common carotid artery was sharply dissected and encircled with vessel loops. The right superior thyroid artery and external carotid artery were sharply dissected and encircled with vessel loops. The patient was given 7000 units of heparin. The common carotid artery was clamped, followed by the superior thyroid and external carotid arteries being controlled with the vessel loops. The internal carotid artery was then sharply dissected free, encircled with vessel loops, and clamped with a profunda clamp. An arteriotomy was made from the common carotid artery through the plaque and into the internal carotid artery. The plaque was noted to be severely calcific and focal and was approximately 95% stenotic. The shunt was inserted into the internal carotid artery and flushed retrograde. A shunt was inserted into the common carotid artery and flushed antegrade. Flow was established through the shunt and confirmed using continuous wave Doppler ultrasound. The endarterectomy was completed, after which the patch angioplasty of the carotid endarterectomy was performed using XenoSure biologic patch and #6-0 Prolene suture. The shunt was removed. All vessels were flushed. The arteriotomy was completed, and flow was reestablished through the common carotid artery into the superior thyroid and external carotid artery and lastly into the internal carotid artery. Good flow was noted without continuous wave Doppler ultrasound evaluation. Hemostasis was then obtained, after which the platysma was closed using #2-0 Vicryl suture and the skin closed with #3-0 Monocryl in a running subcuticular fashion after a CHUN had been brought in through the inferior aspect of the incision. Steri-Strips and dressings were applied. The patient tolerated the procedure well. All instrument, sponge, and needle counts were correct at the end of the case. There were no complications. Dr. Cha was present for and directed the entire case. The patient was extubated in the operating room and noted to be fully neurologically intact with no focal deficits noted. The patient was transferred to the recovery room in stable condition.
--- NOTE | 2018-05-03 16:56 | RO ---
DATE OF PROCEDURE: 03/21/2018 SURGEON: Dr. Mak Cha GRIP ASSEMBLER: Edith Grimm, physician's produce assistant PREOPERATIVE DIAGNOSIS: Right neck hematoma. POSTOPERATIVE DIAGNOSES: Right neck hematoma. OPERATIVE PROCEDURE: Right neck hematoma evacuation. INDICATION: The patient is a 67-year-old female who underwent a right carotid endarterectomy and just as the patient was being moved off the table to the stretcher, a large amount of blood was coming out of the CHUN and the patient was noted to have a right neck hematoma. The patient was placed back on the operating room table to undergo a right neck evaluation and evacuation of hematoma. ANESTHESIA: General endotracheal IV FLUIDS: 400 mL HEPARIN: None. SPECIMEN: None. ESTIMATED BLOOD LOSS: 250 mL COMPLICATIONS: None IMPLANTS: None. DRAINS: #10 CHUN. DESCRIPTION OF PROCEDURE The patient was prepped and draped in a standard surgical fashion. The incision was opened and there was a small venous bleeder noted from the muscle of the sternocleidomastoid muscle which was oversewn using a #2-0 Vicryl suture. The hematoma was evacuated and the endarterectomy site was in good condition with good flow noted from the common carotid artery into the external and internal carotid arteries using continuous wave Doppler ultrasound evaluation. Hemostasis was obtained with thrombin and Gelfoam. A #10 CHUN was placed and then the incision was closed using #2-0 Vicryl to approximate the platysma and #3-0 Monocryl to approximate the skin in a running subcuticular fashion. Steri-Strips and dressings were applied. The patient tolerated the procedure well. All instrument, sponge, and needle counts were correct at the end the case. There were no complications. Dr. Cha was present for and directed the entire case. The patient was transferred to the recovery room awake, alert, extubated and in stable condition with no focal neurologic deficits.
== END 2018-03-23 11:10 | disposition home or self-care (01) | DRG 38 ==
LOC: M OR 09:37 → M PCU 21:12
PROVIDERS: ADMIT Surgery Vascular Surgery; ATTEND Surgery Vascular Surgery
PROC: 03UH0KZ Supplement Right Common Carotid Artery with Nonautologous Tissue Substitute, Open Approach (ICD-10-PCS; 2018-03-21)
PROC: 03CH0ZZ Extirpation of Matter from Right Common Carotid Artery, Open Approach (ICD-10-PCS; 2018-03-21)
PROC: 0KC20ZZ Extirpation of Matter from Right Neck Muscle, Open Approach (ICD-10-PCS; principal; 2018-03-21 11:15)
DX: I65.23 Occlusion and stenosis of bilateral carotid arteries (principal); D62 Acute posthemorrhagic anemia; F17.210 Nicotine dependence, cigarettes, uncomplicated; I10 Essential (primary) hypertension; E78.5 Hyperlipidemia, unspecified; J43.9 Emphysema, unspecified; K74.60 Unspecified cirrhosis of liver; B37.3 Candidiasis of vulva and vagina; R01.1 Cardiac murmur, unspecified; M19.90 Unspecified osteoarthritis, unspecified site; Z79.82 Long term (current) use of aspirin; Z79.899 Other long term (current) drug therapy; Z88.2 Allergy status to sulfonamides; Z88.5 Allergy status to narcotic agent; Z91.040 Latex allergy status

== ENCOUNTER → 2018-04-28 | Outpatient (CLI) | payer MEDICARE, MEDICAID ==
[~2018-04-28] MED LIST changes: +FAMO20TA PO; -LIDOCAINE 1% MDV 20ML VIAL SQ PRN; +PLAV1TAB2 PO
--- NOTE | 2018-04-28 17:15 | REP ---
CAROTID DUPLEX ULTRASOUND: 04/28/2018. Clinical history: Carotid stenosis, status post right endarterectomy 03/25. Comparison: 06/14/2017. Findings: Standard duplex techniques used to evaluate the bilateral carotid systems. The right common carotid and bulb along with the proximal internal carotid show some mild dilatation in the patient with history of recent endarterectomy. I do not see significant plaque along these portions of the vessel. There is tortuosity of the mid right ICA. The distal right ICA was unremarkable. The left CCA shows intimal thickening and there is significant mixed and calcific plaque at the bulb and extending into the proximal ICA and ECA. There is significant shadowing in these areas that could obscure a significant stenosis. Peak velocities: CCA systolic: Right 1.04 M/S, left 0.98 M/S ICA systolic: Right 1.04 cm/S left 1.01. Cm/S ICA diastolic: Right 0.37 M/S, left 0.33 M/S ECA systolic: Right 0.70 M/S left 1.24 M/S IC/CC ratio: Right 1.0 left 1.0 Cranial direction of flow seen in the bilateral vertebral arteries. The shadowing about the proximal ICA, ECA and bulb could certainly obscure significant disease above and below. I do not see significant stenosis on color imaging and perez-scale. The Doppler waveform analysis shows no as spectral broadening or filling in of the systolic window in the proximal ICA. There is mild spectral broadening in the mid ICA but felt related to the tortuosity of the vessel there was a distal ICA is normal appearance with no spectral broadening. There is a occasional irregular rhythm. The left Doppler waveforms show mild spectral broadening in the midportion of the ICA and distally but no filling in of the systolic window. Impression: 1. Bilateral mild carotid disease, less than 50% stenosis. The study does not demonstrate any hemodynamically significant or flow restricting lesion and certainly improved on the right side with the endarterectomy. 2. Extensive mixed and calcific plaque at the distal common carotid bulb and proximal ICA causes shadowing and may obscure a significant stenosis although none of this is seen above or below this region calcific plaque. 3. Cranial direction of flow vertebral arteries. Electronically Signed by Shahid Mcpherson MD 04/28/2018 07:56 P
== END ==
LOC: M RAD 08:57
PROVIDERS: ATTEND Surgery Vascular Surgery
DX: I65.23 Occlusion and stenosis of bilateral carotid arteries (principal)

== ENCOUNTER 2018-05-06 21:05 | Emergency (ER) | payer MEDICARE, MEDICAID ==
[~2018-05-06] VITALS: Ht 175.3 cm; Wt 112.3 kg
[2018-05-06] MEDS ORDERED: MECL12.575 PO (21:46)
[2018-05-06] MEDS ORDERED: LOSA25TA14 PO (21:46)
[2018-05-06] MEDS ORDERED: CHLO125TA PO (21:46)
[2018-05-06] MEDS ORDERED: BREO1INH3 INH (21:46)
--- NOTE | 2018-05-06 21:57 | REPVR ---
EXAM: CT Head Without Contrast EXAM DATE/TIME: 05/06/2018 9:31 PM CLINICAL HISTORY: 67 years old, female; Pain; Headache; Headache not specified; Prior surgery; Surgery date: 1-6 months; Surgery type: Carotid endarterectomy 03/21/18; Additional info: [facility] TECHNIQUE: Axial computed tomography images of the head/brain without contrast. All CT scans at this facility use at least one of these dose optimization techniques: automated exposure control; mA and/or kV adjustment per patient size (includes targeted exams where dose is matched to clinical indication); or iterative reconstruction. COMPARISON: CT Head without contrast 02/05/2017 7:02 PM FINDINGS: Brain: There is no evidence of intracranial bleed. The perez-white differentiation appears preserved. Ventricles: Normal appearing ventricles. Bones/joints: No evidence of fracture. Sinuses: Clear ethmoid and frontal sinuses. Mastoid air cells: Clear mastoid air cells. Soft tissues: Unremarkable. Vasculature: There is calcification of the carotid siphon bilaterally consistent with atherosclerotic changes. IMPRESSION: No evidence of acute stroke. An MRI would be more sensitive. As Electronically signed by: Ricardo Mehta On 05/06/2018 21:57:06 PM
[2018-05-06] MEDS ORDERED: KETOROLAC 30 MG/ML VIAL (J1885) IV ONE (22:30)
[2018-05-06] MEDS ORDERED: dexameTHASONE 20 MG/5 ML VIAL (J1100) IV ONE (22:30)
[2018-05-06 22:37] LABS: BASO % 0.4 % (0.0-1.0); EOS # 0.3 10^3/uL (0.0-0.50); EOS % 4.3 % (0.0-3.0); HEMATOCRIT 34.5 % (36.0-47.0); HEMOGLOBIN 11.3 g/dl (12.0-15.5); LYMPH # 2.9 10^3/uL (1.5-4.5); LYMPH % 42.3 % (24.0-44.0); MEAN CORPUSCULAR HEMOGLOBIN 29.2 pg (27.0-33.0); MEAN CORPUSCULAR HGB CONC 32.8 g/dl (32.0-36.5); MEAN CORPUSCULAR VOLUME 89.1 fl (80.0-96.0); MONO # 0.7 10^3/uL (0.0-0.8); MONO % 10.3 % (0.0-5.0); NEUTROPHILS # 2.9 10^3/uL (1.8-7.7); NEUTROPHILS % 42.6 % (36.0-66.0); PLATELET COUNT, AUTOMATED 180 10^3/uL (150-450); RED BLOOD COUNT 3.87 10^6/uL (4.00-5.40); WHITE BLOOD COUNT 6.8 10^3/uL (4.0-10.0)
[2018-05-06 22:41] LABS: INR 1.19; PARTIAL THROMBOPLASTIN TIME 29.6 SECONDS (25.4-37.6); PROTHROMBIN TIME 15.3 SECONDS (12.1-14.4)
[2018-05-06 22:44] LABS: BLOOD UREA NITROGEN 13 MG/DL (7-18); CALCIUM LEVEL 8.5 MG/DL (8.8-10.2); CARBON DIOXIDE LEVEL 30 MEQ/L (21-32); CHLORIDE LEVEL 105 MEQ/L (98-107); CREATININE FOR GFR 0.73 MG/DL (0.55-1.30); GLOMERULAR FILTRATION RATE > 60.0 (>45); GLUCOSE, FASTING 95 MG/DL (70-100); SODIUM LEVEL 141 MEQ/L (136-145)
[2018-05-06 23:11] LABS: ERYTHROCYTE SEDIMENTATION RATE 47 mm/hr (0-30)
[2018-05-06 23:30] VITALS: BP 145/82
[2018-05-06] MEDS ORDERED: PRED20TA PO (23:41)
== END 2018-05-06 23:50 | disposition home or self-care (01) ==
LOC: M ED 21:05
DX: M31.6 Other giant cell arteritis (principal); R11.0 Nausea; Z86.79 Personal history of other diseases of the circulatory system; I10 Essential (primary) hypertension; B19.20 Unspecified viral hepatitis C without hepatic coma; K74.60 Unspecified cirrhosis of liver; I83.90 Asymptomatic varicose veins of unspecified lower extremity; F17.200 Nicotine dependence, unspecified, uncomplicated; Z88.5 Allergy status to narcotic agent; Z88.2 Allergy status to sulfonamides; Z91.040 Latex allergy status; Z79.899 Other long term (current) drug therapy; Z79.01 Long term (current) use of anticoagulants; Z79.82 Long term (current) use of aspirin; Z79.51 Long term (current) use of inhaled steroids
CPT/HCPCS: 36415; 70450; 80048; 82375; 85025; 85610; 85652; 85730; 96374; 96375; 99284; J1100; J1885

== ENCOUNTER → 2018-05-09 | Outpatient (REF) | payer MEDICARE, MEDICAID ==
[~2018-05-09] MED LIST changes: +CHLO125TA PO; +MECL12.575 PO; +PRED20TA PO
[2018-05-09 14:05] LABS: BASO % 0.3 % (0.0-1.0); EOS # 0.1 10^3/uL (0.0-0.50); EOS % 0.8 % (0.0-3.0); HEMATOCRIT 34.4 % (36.0-47.0); HEMOGLOBIN 11.2 g/dl (12.0-15.5); LYMPH # 1.8 10^3/uL (1.5-4.5); MEAN CORPUSCULAR HEMOGLOBIN 29.2 pg (27.0-33.0); MEAN CORPUSCULAR HGB CONC 32.6 g/dl (32.0-36.5); MEAN CORPUSCULAR VOLUME 89.6 fl (80.0-96.0); MONO # 0.5 10^3/uL (0.0-0.8); MONO % 6.7 % (0.0-5.0); NEUTROPHILS % 67.8 % (36.0-66.0); PLATELET COUNT, AUTOMATED 163 10^3/uL (150-450); RED BLOOD COUNT 3.84 10^6/uL (4.00-5.40); WHITE BLOOD COUNT 7.4 10^3/uL (4.0-10.0)
[2018-05-09 14:47] LABS: ERYTHROCYTE SEDIMENTATION RATE 36 mm/hr (0-30)
== END ==
LOC: M SFHCPLAZ 11:15
PROVIDERS: ATTEND Physician Assistant Medical
DX: M31.6 Other giant cell arteritis (principal)
CPT/HCPCS: 85025; 85652; 86140; G0463

== ENCOUNTER → 2018-05-20 | Outpatient (CLI) | payer MEDICARE, MEDICAID ==
--- NOTE | 2018-05-20 10:21 | REP ---
MR BRAIN WITHOUT CONTRAST: HISTORY: Migraine headache. COMPARISON: CT 05/06/2018 Punctate and confluent areas of increased signal intensity on T2-weighted images are present in the periventricular and subcortical white matter. This represents small vessel ischemic disease. There is no intraparenchymal hemorrhage, infarct mass, or midline shift. The sella turcica is partially empty. The ventricular system is normal in appearance. The cortical sulci are dilated consistent with minimal volume loss. There is no extracerebral collection. The sinuses are clear. IMPRESSION: 1. Small vessel ischemic disease. 2. Minimal volume loss. Electronically Signed by Eliseo Graham MD 05/20/2018 10:22 A
--- NOTE | 2018-05-20 10:23 | REP ---
MRA BRAIN WITHOUT CONTRAST: HISTORY: Migraine headache. 3D [id number] MR angiography was performed at level of the [place]. There is no aneurysm, arteriovenous malformation or atherosclerotic lesion. The major intracranial vessels are patent. The vertebral arteries are equal in size. IMPRESSION: Normal MRA brain. Electronically Signed by Eliseo Graham MD 05/20/2018 10:23 A
== END ==
LOC: M RAD 08:50
PROVIDERS: ATTEND Physician Assistant Medical
DX: I67.89 Other cerebrovascular disease (principal); G43.101 Migraine with aura, not intractable, with status migrainosus

== ENCOUNTER → 2018-06-12 | Outpatient (REF) | payer MEDICARE, MEDICAID ==
[~2018-06-12] MED LIST changes: -ASPI1TAB PO; +ASPI81TA26 PO; +LATA0.0013 OU; -LATA5OPD OU; -NAPR-50 PO; +NAPR-837 PO; +VITA500T17 PO; -VITA500T53 PO
== END ==
LOC: M SFHCPLAZ 17:52
PROVIDERS: ATTEND Physician Assistant Medical
DX: R05 Cough (principal); Z53.8 Procedure and treatment not carried out for other reasons

== ENCOUNTER → 2018-06-12 | Outpatient (CLI) | payer MEDICARE, MEDICAID ==
[~2018-06-12] MED LIST changes: +FOLI0.4T PO; +NORT10CA2; +OLME5TAB
--- NOTE | 2018-06-13 09:44 | REP ---
Clinical: Acute cough . Comparison: 03/24/2017 . Technique: PA and lateral. Findings: The mediastinum and cardiac silhouette are normal. The lung bajwa are clear and without acute consolidation, effusion, or pneumothorax. The skeletal structures demonstrate degenerative changes of the thoracic spine. Impression: 1. No acute cardiopulmonary process. Electronically Signed by Elliot Norwood MD 06/13/2018 09:36 A
== END ==
LOC: M LRY 17:39
PROVIDERS: ATTEND Physician Assistant Medical
DX: M51.34 Other intervertebral disc degeneration, thoracic region (principal); R05 Cough

== ENCOUNTER → 2018-06-13 | Outpatient (REF) | payer MEDICARE, MEDICAID ==
[~2018-06-13] MED LIST changes: -FOLI0.4T PO; -NORT10CA2; -OLME5TAB
[2018-06-13 13:52] LABS: BASO % 0.7 % (0.0-1.0); EOS # 0.5 10^3/uL (0.0-0.50); EOS % 8.5 % (0.0-3.0); HEMATOCRIT 38.6 % (36.0-47.0); HEMOGLOBIN 12.6 g/dl (12.0-15.5); LYMPH # 2.1 10^3/uL (1.5-4.5); LYMPH % 38.5 % (24.0-44.0); MEAN CORPUSCULAR HGB CONC 32.6 g/dl (32.0-36.5); MEAN CORPUSCULAR VOLUME 88.7 fl (80.0-96.0); MONO # 0.6 10^3/uL (0.0-0.8); MONO % 11.2 % (0.0-5.0); NEUTROPHILS # 2.3 10^3/uL (1.8-7.7); NEUTROPHILS % 40.9 % (36.0-66.0); PLATELET COUNT, AUTOMATED 169 10^3/uL (150-450); RED BLOOD COUNT 4.35 10^6/uL (4.00-5.40); WHITE BLOOD COUNT 5.5 10^3/uL (4.0-10.0)
[2018-06-13 14:01] LABS: ALBUMIN 4.1 GM/DL (3.2-5.2); ALT/SGPT 18 U/L (12-78); BILIRUBIN,TOTAL 0.5 MG/DL (0.2-1.0); BLOOD UREA NITROGEN 11 MG/DL (7-18); CALCIUM LEVEL 9.4 MG/DL (8.8-10.2); CARBON DIOXIDE LEVEL 34 MEQ/L (21-32); CHLORIDE LEVEL 101 MEQ/L (98-107); CREATININE FOR GFR 0.74 MG/DL (0.55-1.30); GLOMERULAR FILTRATION RATE > 60.0 (>45); GLUCOSE, FASTING 106 MG/DL (70-100); POTASSIUM SERUM 4.5 MEQ/L (3.5-5.1); SODIUM LEVEL 138 MEQ/L (136-145); TOTAL PROTEIN 7.7 GM/DL (6.4-8.2)
== END ==
LOC: M SFHCPLAZ 10:49
PROVIDERS: ATTEND Physician Assistant Medical
DX: R05 Cough (principal)

== ENCOUNTER 2018-06-24 18:05 | Emergency (ER) | payer MEDICAID, MEDICARE ==
[~2018-06-24] VITALS: Ht 175.3 cm; Wt 116.4 kg
[2018-06-24] MEDS ORDERED: IPRATROPIUM 0.5MG/ALBUTEROL 2.5MG INH SOL UD 3ML (DUONEB)(J7620) NEB ONE (18:30)
[2018-06-24 18:53] LABS: BASO % 0.5 % (0.0-1.0); EOS # 0.6 10^3/uL (0.0-0.50); EOS % 7.5 % (0.0-3.0); HEMATOCRIT 35.5 % (36.0-47.0); HEMOGLOBIN 11.9 g/dl (12.0-15.5); LYMPH # 3.1 10^3/uL (1.5-4.5); LYMPH % 40.4 % (24.0-44.0); MEAN CORPUSCULAR HEMOGLOBIN 29.2 pg (27.0-33.0); MEAN CORPUSCULAR HGB CONC 33.5 g/dl (32.0-36.5); MONO # 0.8 10^3/uL (0.0-0.8); MONO % 10.2 % (0.0-5.0); NEUTROPHILS # 3.2 10^3/uL (1.8-7.7); NEUTROPHILS % 41.1 % (36.0-66.0); PLATELET COUNT, AUTOMATED 146 10^3/uL (150-450); RED BLOOD COUNT 4.08 10^6/uL (4.00-5.40); WHITE BLOOD COUNT 7.7 10^3/uL (4.0-10.0)
[2018-06-24] MEDS ORDERED: OLME5TAB (18:57)
[2018-06-24] MEDS ORDERED: NORT10CA2 (18:57)
[2018-06-24] MEDS ORDERED: FOLI0.4T PO (18:57)
[2018-06-24 19:23] LABS: BLOOD UREA NITROGEN 10 MG/DL (7-18); CALCIUM LEVEL 8.5 MG/DL (8.8-10.2); CARBON DIOXIDE LEVEL 30 MEQ/L (21-32); CHLORIDE LEVEL 106 MEQ/L (98-107); CK-MB VALUE MASS < 1.0 NG/ML (<3.6); CPK CREATINE PHOSPHOKINASE 83 U/L (26-192); CREATININE FOR GFR 0.81 MG/DL (0.55-1.30); FREE T4 1.08 NG/DL (0.76-1.46); GLOMERULAR FILTRATION RATE > 60.0 (>45); GLUCOSE, FASTING 105 MG/DL (70-100); NT-PRO BNP 29 PG/ML (<125); POTASSIUM SERUM 3.5 MEQ/L (3.5-5.1); SODIUM LEVEL 142 MEQ/L (136-145); TROPONIN I < 0.02 NG/ML (< 0.10)
[2018-06-24] MEDS ORDERED: GI COCKTAIL 50ML BTL(HYOSCYAMINE/MAALOX/LIDOCAINE VISCOUS)(1:3:1) PO ONE (19:30)
[2018-06-24 20:21] VITALS: BP 130/75
--- NOTE | 2018-06-25 09:35 | REP ---
REASON: Chest pain. COMPARISON: 06/12/2018. The technique utilized in obtaining the radiograph has magnified the cardiac silhouette and accentuated the interstitial markings. The CP angles have not been included on this portable exam. Small pleural effusions or CP angle opacities cannot be ruled out by this limited exam. With that exception, the lungs are clear and the heart is not enlarged. No significant changes from the prior exam other than technique as described above. IMPRESSION: Exam limitations as described above. Consider repeat. Electronically Signed by Cristian Martinez DO 06/25/2018 01:45 P
--- NOTE | 2018-06-25 20:52 | ECGEPIP ---
Stationary ECG Study [facility] - ED Test Date: 2018-06-24 Pat Name: KARL SPENCE Department: Room: - Gender: F Rug Hooker: [facility] : 1950 Requested By: TONY Curtis Order Number: [id number] Reading MD: Ifeoma Alvarez Measurements Intervals [place] Rate: 90 P: 76 MS: 193 QRS: -15 QRSD: 86 T: 70 QT: 373 QTc: 458 Interpretive Statements SINUS RHYTHM INCREASED RATE 02/05/17 Electronically Signed On 06-25-2018 20:51:56 EDT by Ifeoma Alvarez
--- NOTE | 2018-06-26 08:04 | ED PDOC ---
Post-Departure Follow-Up linda wright faxed formal report of cxr for fu ciprianog Shon Loco MD Jun 26, 2018 08:04
== END 2018-06-24 20:45 | disposition home or self-care (01) ==
LOC: EDBD 18:05 → M ED 18:05
DX: K21.9 Gastro-esophageal reflux disease without esophagitis (principal); R07.89 Other chest pain; R06.2 Wheezing; I10 Essential (primary) hypertension; J44.9 Chronic obstructive pulmonary disease, unspecified; Z88.2 Allergy status to sulfonamides; Z88.6 Allergy status to analgesic agent; Z95.828 Presence of other vascular implants and grafts; Z91.040 Latex allergy status; Z79.82 Long term (current) use of aspirin; Z79.51 Long term (current) use of inhaled steroids; Z79.891 Long term (current) use of opiate analgesic; Z79.899 Other long term (current) drug therapy
CPT/HCPCS: 36415; 71045; 80048; 82550; 82553; 83880; 84439; 84443; 84484; 85025; 93005; 93041; 94640; 94760; 99285; G0463

== ENCOUNTER → 2018-07-17 | Outpatient (REF) | payer MEDICARE, MEDICAID ==
[~2018-07-17] MED LIST changes: +FOLI0.4T PO; +NORT10CA2; +OLME5TAB
[2018-07-17 18:05] LABS: ALBUMIN 3.9 GM/DL (3.2-5.2); ALT/SGPT 18 U/L (12-78); BILIRUBIN,TOTAL 0.6 MG/DL (0.2-1.0); BLOOD UREA NITROGEN 15 MG/DL (7-18); CALCIUM LEVEL 8.8 MG/DL (8.8-10.2); CARBON DIOXIDE LEVEL 30 MEQ/L (21-32); CHLORIDE LEVEL 105 MEQ/L (98-107); CREATININE FOR GFR 0.77 MG/DL (0.55-1.30); GLOMERULAR FILTRATION RATE > 60.0 (>45); GLUCOSE, FASTING 100 MG/DL (70-100); SODIUM LEVEL 140 MEQ/L (136-145); TOTAL PROTEIN 8.1 GM/DL (6.4-8.2)
== END ==
LOC: M SFHCPLAZ 15:05
PROVIDERS: ATTEND Physician Assistant Medical
DX: E87.6 Hypokalemia (principal)

== ENCOUNTER → 2022-07-29 | Outpatient (REF) | payer MEDICARE, MEDICAID ==
[~2022-07-29] MED LIST changes: -ALBU17IN2; +ALBU6.7H6; +CALC-212 PO; -CALC600T7 PO; +CLOP75TA99 PO; -FOLI0.4T PO; +FOLI0.4T5 PO; +HYDR-3490 PO; -HYDR25TAB PO; -LISI-538 PO; +LISI20TA33 PO; +LOSA25TA13 PO; -LOSA25TA14 PO; +MECL-136; +MECL-136 PO; -MECL12.575; -MECL12.575 PO; -OLME5TAB; +OLME5TAB24; -OMEP40CA2 PO; +OMEP40CA4 PO; -PLAV1TAB2 PO
[2022-07-29 22:24] LABS: APPEARANCE, URINE CLEAR (CLEAR); BACTERIA, URINE AUTO NEGATIVE (NEGATIVE); BILIRUBIN, URINE AUTO NEGATIVE (NEGATIVE); BLOOD, URINE BLOOD NEGATIVE (NEGATIVE); COLOR, URINE YELLOW (YELLOW); GLUCOSE, URINE (UA) AUTO NEGATIVE (NEGATIVE); KETONE, URINE AUTO NEGATIVE (NEGATIVE); LEUKOCYTE ESTERASE, URINE AUTO NEGATIVE (NEGATIVE); MUCUS, URINE SMALL (NEGATIVE); NITRITE, URINE AUTO NEGATIVE (NEGATIVE); PROTEIN, URINE AUTO 1+ mg/dL (NEGATIVE); RBC, URINE AUTO 1 /HPF (0-3); SPECIFIC GRAVITY URINE AUTO 1.011 (1.002-1.035); SQUAMOUS EPITHELIAL CELL UR AU 0 /HPF (0-6); UROBILINOGEN, URINE AUTO 0.2 mg/dL (0.0-2.0); WBC, URINE AUTO 1 /HPF (0-3)
== END ==
LOC: M LAB REF 22:07
PROVIDERS: ATTEND Physician Assistant
DX: N39.0 Urinary tract infection, site not specified (principal)